=== PATIENT | male | born 1995 | race Caucasian/White ===

== ENCOUNTER 2024-01-10 12:17 | Emergency (ER) | payer OTHER ==
[~2024-01-10] VITALS: Ht 180.3 cm; Wt 98.6 kg
[2024-01-10] MEDS: LIDOCAINE 5% (LIDODERM) PATCH TD ONE (13:43)
[2024-01-10] MEDS: ACETAMINOPHEN 500 MG TAB PO ONE (13:43)
[2024-01-10] MEDS: KETOROLAC 30 MG/ML 1ML VIAL IM ONE (13:43)
[2024-01-10] MEDS: diazePAM 5MG TABLET PO ONE (13:43)
[2024-01-10 15:18] VITALS: BP 124/69; TEMP 97.7; O2SAT 99
[2024-01-10] MEDS ORDERED: METH-1165 PO (15:55)
[2024-01-10] MEDS: methylPREDNISolone 125MG 2ML VIAL IM ONE (15:56)
== END 2024-01-10 16:13 | disposition home or self-care (01) ==
LOC: M ED 12:17
DX: M51.16 Intervertebral disc disorders with radiculopathy, lumbar region (principal); Z79.899 Other long term (current) drug therapy
CPT/HCPCS: 72131; 96372; 99283; J1885; J2919